=== PATIENT | female | born 1990 | race Hispanic/Latino ===

== ENCOUNTER 2019-10-28 21:11 | Emergency (ER) | payer SELFPAY ==
[2019-10-28 21:31] VITALS: BP 112/70
[2019-10-28] MEDS ORDERED: LIDOCAINE (2%) 20 MG/1 ML VIAL 20 ML MDV INFILTRATI ONE (21:44)
--- NOTE | 2019-10-28 22:06 | Emergency Department Report ---
Abscess Boil HPI - HPI Chief Complaint: Skin/Abscess/Foreign Body Stated Complaint: ABSCESS Time Seen by Provider: 10/28/19 21:43 Duration: 2 Days Location: Other (Right [place]) Severity: Mild History: Yes Pain, No Fever, No Purulent Drainage, No Numbness, No Foreign Body, No Previous History, No Insect Bite HPI: This is a 29-year-old female nontoxic, well nourished in appearance, no acute signs of distress presents to the ED with c/o of pain to vagina. 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 Patient denies any pus or drainage. Patient denies any fever, chills, nausea, vomiting, chest pain, shortness of breath, headache or stiff neck. Patient denies any allergies or significant past medical history. Home Medications: Previous Rx's Medication Instructions Recorded Last Taken Type Acetaminophen/Codeine [Tylenol 1 tab PO Q6H PRN #12 tab 10/28/19 Unknown Rx /Codeine # 3 tab] Clindamycin [Clindamycin CAP] 300 mg PO Q8H #21 cap 10/28/19 Unknown Rx ED Review of Systems ROS: Stated complaint: ABSCESS Other details as noted in HPI Constitutional: denies: chills, fever Eyes: denies: eye pain, eye discharge, vision change ENT: denies: ear pain, throat pain Respiratory: denies: cough, shortness of breath, wheezing Cardiovascular: denies: chest pain, palpitations Endocrine: no symptoms reported Gastrointestinal: denies: abdominal pain, nausea, diarrhea Genitourinary: denies: urgency, dysuria, discharge Musculoskeletal: denies: back pain, joint swelling, arthralgia Skin: denies: rash, lesions Neurological: denies: headache, weakness, paresthesias Psychiatric: denies: anxiety, depression Hematological/Lymphatic: denies: easy bleeding, easy bruising ED Past Medical Hx - Past Medical History Previous Medical History?: No - Surgical History Past Surgical History?: No - Social History Smoking Status: Never Smoker Substance Use Type: None - Medications Home Medications: Home Medications Medication Instructions Recorded Confirmed Last Taken Type Acetaminophen/Codeine [Tylenol 1 tab PO Q6H PRN #12 tab 10/28/19 Unknown Rx /Codeine # 3 tab] Clindamycin [Clindamycin CAP] 300 mg PO Q8H #21 cap 10/28/19 Unknown Rx ED Abscess Boil Physical Exam - Exam General: Vital signs noted. No distress. Alert and acting appropriately. Exam: Yes Tenderness, Yes Normal Neurologic Exam, Yes Normal Circulation, No Fluctuance, No Surrounding Cellulites/Erythema, No Lymphangitis, No Crepitation, No Heart Murmur Exam: No swelling or abscess noted on exam. 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 ED Course Vital Signs 10/28/19 21:23 Temperature 99.0 F Pulse Rate 88 Respiratory 20 Rate Blood Pressure 112/70 O2 Sat by Pulse 98 Oximetry - Reevaluation(s) Reevaluation #1: 10/28/19 22:05 Patient is speaking in full sentences with no signs of distress noted. Critical care attestation.: If time is entered above; I have spent that time in minutes in the direct care of this critically ill patient, excluding procedure time. ED Medical Decision Making - Medical Decision Making This is a 29-year-old female that presents with ko duct cyst. Patient is stable and was examined by me. If incision and drainage needs to be done, it needs to be done by a DRUG SAFETY SPECIALIST specialist due to anatomy of the possible abscess. I was not able to visual swelling or abscess during the physical exam. Material Handler present during the whole procedure and physical exam. Patient was educated on proper wound care. Patient is discharged with clindamycin and Tylenol with codeine and was instructed not to operate any machinery while taking Tylenol with codeine due to drowsiness. Patient was instructed to refer to Follow-up with a OBGYN doctor in [place] or if symptoms worsen and continue return to emergency room as soon as possible. At time of discharge, the patient does not seem toxic or ill in appearance. No acute signs of distress noted. Patient agrees to discharge treatment plan of care. No further questions noted by the patient. ED Disposition Clinical Impression: Ko duct, cyst Disposition: DC-01 TO HOME OR SELFCARE Is pt being admited?: No Does the pt Need Aspirin: No Condition: Stable Instructions: Acetaminophen/Codeine (By mouth) Additional Instructions: Follow-up with a OBGYN doctor in [place] for possible incision and drainage or if symptoms worsen and continue return to emergency room as soon as possible. Do not operate any machinery while taking Tylenol with codeine as this may cause drowsiness. Prescriptions: Clindamycin [Clindamycin CAP] 300 mg PO Q8H #21 cap Acetaminophen/Codeine [Tylenol /Codeine # 3 tab] 1 tab PO Q6H PRN #12 tab PRN Reason: Pain , Severe (7-10) Referrals: PRIMARY CARE, [Primary Care Provider] - 3-5 Days DENIZ WHITTEN MD [Staff Physician] - [place] NIKUNJ GRULLON MD [Staff Physician] - [place] [facility] [Provider Group] - [place] Forms: Work/School Release Form(ED)
== END 2019-10-28 22:34 | disposition home or self-care (01) ==
LOC: ED 21:11
DX: Q52.4 Other congenital malformations of vagina (principal)
CPT/HCPCS: 99282

== ENCOUNTER 2020-07-14 16:19 | Emergency (ER) | payer SELFPAY ==
[2020-07-14] MEDS ORDERED: ASPIRIN 325 MG TAB PO ONE (16:32)
--- NOTE | 2020-07-14 17:00 | XRay Report ---
CHEST 1 VIEW, 07/14/2020 3:54 PM CLINICAL INFORMATION/INDICATION: Chest pain COMPARISON: None. FINDINGS: SUPPORT DEVICES: None. HEART: The cardiac silhouette is normal in size. LUNGS/PLEURA: The lungs are clear of focal airspace disease or significant pleural effusion. ADDITIONAL FINDINGS: No additional acute findings. IMPRESSION: 1. No evidence of acute cardiopulmonary process. Signer Name: Ana Nguyen MD Signed: 07/14/2020 4:55 PM Workstation Name: [id number]
[2020-07-14 17:19] LABS: Basophils % (Auto) 0.1 % (0.0-1.8); Eosinophils # (Auto) 0.5 K/mm3 (0.0-0.4); Eosinophils % (Auto) 4.1 % (0.0-4.3); Hematocrit 39.8 % (30.3-42.9); Hemoglobin 13.5 gm/dl (10.1-14.3); Lymphocytes % (Auto) 17.2 % (13.4-35.0); Mean Corpuscular HGB Conc 34 % (30-34); Mean Corpuscular Volume 86 fl (79-97); Monocytes # (Auto) 0.5 K/mm3 (0.0-0.8); Monocytes % (Auto) 4.3 % (0.0-7.3); Platelet Count 291 K/mm3 (140-440); Red Blood Count 4.64 M/mm3 (3.65-5.03); Red Cell Distribution Width 13.9 % (13.2-15.2)
[2020-07-14 17:36] LABS: BUN/Creatinine Ratio 11; Blood Urea Nitrogen 9 mg/dL (7-17); Calcium 9.1 mg/dL (8.4-10.2); Hemolysis Index 1
[2020-07-14] MEDS ORDERED: IBUPROFEN 600 MG TAB PO ONE ×2 (18:35→18:36)
--- NOTE | 2020-07-14 20:56 | Emergency Department Report ---
HPI - General Chief Complaint: Chest Pain - HPI HPI: Room 43 The patient is a 29-year-old female present with a chief complaint of chest pain. Patient states for the past 2 to 3 days she has had pain in the left chest rating to the left shoulder. Patient describes the pain as sharp in nature and constant but waxing and waning. Patient admits to pleurisy but denies cough. The patient states she is also had a "cyst" in her right groin for the past 2 to 3 days. Patient has dysuria for several weeks although she states she just completed a course of antibiotics for UTI last weekend. Patient denies any recent flights or long car trips. ED Past Medical Hx - Past Medical History Previous Medical History?: Yes Hx Hypertension: Yes - Surgical History Additional Surgical History: Hysterectomy, , LEEP, D&C, wisdom tooth extraction - Family History Family history: no significant - Social History Smoking Status: Never Smoker Substance Use Type: None (Denies illicit drug use), Alcohol (Occasional) - Medications Home Medications: Home Medications Medication Instructions Recorded Confirmed Last Taken Type Acetaminophen/Codeine [Tylenol 1 tab PO Q6H PRN #12 tab 10/28/19 Unknown Rx /Codeine # 3 tab] Clindamycin [Clindamycin CAP] 300 mg PO Q8H #21 cap 10/28/19 Unknown Rx Ondansetron [Zofran Odt] 4 mg PO Q8HR PRN #12 tab.rapdis 10/28/19 Unknown Rx Ciprofloxacin HCl [Ciprofloxacin 500 mg PO Q12HR #20 tab 07/14/20 Unknown Rx TAB] HYDROcodone/APAP 5-325 [Ravia 1 - 2 each PO Q6HR PRN #14 tablet 07/14/20 Unknown Rx 5/325] Ibuprofen [Motrin 800 MG tab] 800 mg PO Q8HR PRN #20 tablet 07/14/20 Unknown Rx Sulfamethoxazole/Trimethoprim 1 each PO BID #20 tablet 07/14/20 Unknown Rx [Bactrim DS TAB] ED Review of Systems ROS: Stated complaint: LT SIDE CHEST PAIN/SHOULDER/ CYSTON RT LEG Other details as noted in HPI Constitutional: fever Eyes: denies: eye pain ENT: throat pain Respiratory: other (Pleurisy). denies: cough Cardiovascular: chest pain Endocrine: no symptoms reported Gastrointestinal: abdominal pain Genitourinary: dysuria Musculoskeletal: denies: back pain Neurological: denies: headache Physical Exam - Physical Exam Vital Signs: Vital Signs 07/14/20 16:30 Temperature 98.4 F Pulse Rate 113 H Respiratory 18 Rate Blood Pressure 142/86 [Right] O2 Sat by Pulse 98 Oximetry Physical Exam: GENERAL: The patient is well-developed well-nourished female lying on stretcher not appearing to be in acute distress. [] HEENT: Normocephalic. Atraumatic. Extraocular motions are intact. Patient has moist mucous membranes. NECK: Supple. Trachea midline CHEST/LUNGS: Clear to auscultation. There is no respiratory distress noted. HEART/CARDIOVASCULAR: Regular. There is no tachycardia. There is no gallop rub or murmur. ABDOMEN: Abdomen is soft, with diffuse discomfort to palpation which the patient attributes to being postop from hysterectomy. Patient has normal bowel sounds. There is no abdominal distention. SKIN: There is a wound draining purulent fluid just inferior to the right inguinal crease. Does not appear to involve the genitalia. NEURO: The patient is awake, alert, and oriented. The patient is cooperative. The patient has no focal neurologic deficits. The patient has normal speech MUSCULOSKELETAL: There is no evidence of acute injury. ED Course Vital Signs 07/14/20 16:30 Temperature 98.4 F Pulse Rate 113 H Respiratory 18 Rate Blood Pressure 142/86 [Right] O2 Sat by Pulse 98 Oximetry ED Medical Decision Making - Lab Data Result diagrams: 07/14/20 16:59 07/14/20 16:59 Laboratory Tests 07/14/20 07/14/20 07/14/20 16:59 16:59 20:50 WBC 11.6 H RBC 4.64 Hgb 13.5 Hct 39.8 MCV 86 MCH 29 MCHC 34 RDW 13.9 Plt Count 291 Lymph % (Auto) 17.2 Sutter % (Auto) 4.3 Eos % (Auto) 4.1 Baso % (Auto) 0.1 Lymph # (Auto) 2.0 Sutter # (Auto) 0.5 Eos # (Auto) 0.5 H Baso # (Auto) 0.0 Seg Neutrophils % 74.3 H Seg Neutrophils # 8.6 H D-Dimer 224.05 Sodium 142 Potassium 4.4 Chloride 104.9 Carbon Dioxide 27 Anion Gap 15 BUN 9 Creatinine 0.8 Estimated GFR > 60 BUN/Creatinine Ratio 11 Glucose 95 Calcium 9.1 Troponin T < 0.010 HCG, Qual 07/14/20 20:50 WBC RBC Hgb Hct MCV MCH MCHC RDW Plt Count Lymph % (Auto) Sutter % (Auto) Eos % (Auto) Baso % (Auto) Lymph # (Auto) Sutter # (Auto) Eos # (Auto) Baso # (Auto) Seg Neutrophils % Seg Neutrophils # D-Dimer Sodium Potassium Chloride Carbon Dioxide Anion Gap BUN Creatinine Estimated GFR BUN/Creatinine Ratio Glucose Calcium Troponin T HCG, Qual Negative - EKG Data -: EKG Interpreted by Me EKG shows normal: sinus rhythm Rate: normal - EKG Data When compared to previous EKG there are: previous EKG unavailable Interpretation: normal EKG - Radiology Data Radiology results: report reviewed (Chest x-ray), image reviewed (Chest x-ray) interpreted by me: Chest x-ray-no focal infiltrates, no pneumothorax. No foreign body seen Findings [facility] [address] [place] [address] XRay Report Signed Patient: ZARINA MOTTA MR#: [id number] : 1990 Acct:[id number] Age/Sex: 29 / F ADM Date: 07/14/20 Loc: ED Attending Dr: Ordering Physician: JHONY WATTS MD Date of Service: 07/14/20 Procedure(s): XR chest 1V ap Accession Number(s): [id number] cc: ED MD STEFANIE Fluoro Time In Minutes: CHEST 1 VIEW, 07/14/2020 3:54 PM CLINICAL INFORMATION/INDICATION: Chest pain COMPARISON: None. FINDINGS: SUPPORT DEVICES: None. HEART: The cardiac silhouette is normal in size. LUNGS/PLEURA: The lungs are clear of focal airspace disease or significant pleural effusion. ADDITIONAL FINDINGS: No additional acute findings. IMPRESSION: 1. No evidence of acute cardiopulmonary process. Signer Name: Ana Nguyen MD Signed: 07/14/2020 4:55 PM Workstation Name: [id number] Transcribed By: EB Dictated By: Ana Nguyen MD Electronically Authenticated By: Ana Nguyen MD Signed Date/Time: 07/14/201654 DD/ 54 TD/TT: - Differential Diagnosis Pleurisy, ACS, PE, pericarditis, GERD, labial abscess Critical care attestation.: If time is entered above; I have spent that time in minutes in the direct care of this critically ill patient, excluding procedure time. ED Disposition Clinical Impression: Atypical chest pain, Abscess of right thigh Disposition: TO HOME OR SELFCARE Is pt being admited?: No Does the pt Need Aspirin: No Condition: Stable Instructions: Chest Pain (ED), Nonspecific Chest Pain, Adult, [id number] Additional Instructions: Return to the emergency department should you develop worsening symptoms, inability to tolerate food or liquids, high fever or any other concerns Prescriptions: Sulfamethoxazole/Trimethoprim [Bactrim DS TAB] 1 each PO BID #20 tablet Ciprofloxacin HCl [Ciprofloxacin TAB] 500 mg PO Q12HR #20 tab Ibuprofen [Motrin 800 MG tab] 800 mg PO Q8HR PRN #20 tablet PRN Reason: Pain, Moderate (4-6) HYDROcodone/APAP 5-325 [Ravia 5/325] 1 - 2 each PO Q6HR PRN #14 tablet PRN Reason: Pain Referrals: PRIMARY CARE, [Primary Care Provider] - 3-5 Days [facility] [Provider Group] - 3-5 Days Time of Disposition: 22:09
[2020-07-14 21:38] VITALS: BP 111/69
== END 2020-07-14 22:22 | disposition home or self-care (01) ==
LOC: ED 16:19
DX: R07.89 Other chest pain (principal); L02.415 Cutaneous abscess of right lower limb; I10 Essential (primary) hypertension; Z90.710 Acquired absence of both cervix and uterus; Z79.899 Other long term (current) drug therapy
CPT/HCPCS: 36415; 71045; 80048; 84484; 84703; 85025; 85379; 87116; 93005; 99283